=== PATIENT | male | born 1985 | race African-American/Black ===

== ENCOUNTER 2019-06-14 15:30 | Emergency (ER) | payer OTHER ==
[~2019-06-14] VITALS: Ht 180.3 cm; Wt 73.0 kg
[2019-06-14 15:52] VITALS: BP 137/84
--- NOTE | 2019-06-14 18:40 | NUR ---
Law enforcement given discharge instructions and they have confirmed that they understand the instructions. Patient ambulatory with steady gait.
== END 2019-06-14 18:41 | disposition home or self-care (01) ==
LOC: ED 15:39
DX: S02.32XA Fracture of orbital floor, left side, initial encounter for closed fracture (principal); S02.832A Fracture of medial orbital wall, left side, initial encounter for closed fracture; S02.642A Fracture of ramus of left mandible, initial encounter for closed fracture; X58.XXXA Exposure to other specified factors, initial encounter; Y93.89 Activity, other specified; Y92.148 Other place in prison as the place of occurrence of the external cause; Y99.8 Other external cause status
CPT/HCPCS: 70486; 99284

== ENCOUNTER 2019-06-21 12:42 | Inpatient (IN) | payer OTHER ==
[~2019-06-21] VITALS: Ht 180.3 cm; Wt 83.8 kg
--- NOTE | 2019-06-21 15:10 | NUR ---
provider reminded to place admit orders
[2019-06-21] MEDS ORDERED: IBUPROFEN 800 MG TABLET ONE (15:25)
[2019-06-21] MEDS ORDERED: IBUPROFEN 800 MG TABLET PO ONE (15:30)
--- NOTE | 2019-06-21 15:57 | NUR ---
Meal tray provided for patient.
--- NOTE | 2019-06-21 16:16 | NUR ---
ATTEMPTED TO CALL REPORT X 1
--- NOTE | 2019-06-21 16:25 | NUR ---
TO CT SCAN
[2019-06-21 17:00] VITALS: BP 122/74
[2019-06-21 18:56] VITALS: BP 131/75
[2019-06-21] MEDS ORDERED: OXYcodone IR 5MG TABLET PO PRN (19:30)
[2019-06-21] MEDS ORDERED: MORPHINE SULFATE 4 MG/ML, 1ML IVPush PRN (19:30)
[2019-06-21] MEDS ORDERED: ONDANSETRON 2MG/ML, 2ML IVPush PRN (19:30)
[2019-06-21] MEDS ORDERED: BISACODYL 10 MG SUPP PR PRN (19:30)
[2019-06-21] MEDS ORDERED: PROMETHAZINE 25 MG/ML, 1ML IM PRN (19:30)
[2019-06-21] MEDS ORDERED: POLYETHYLENE GLYCOL 17 GM PACKET PO PRN (19:30)
[2019-06-21] MEDS ORDERED: ACETAMINOPHEN 325 MG TABLET PO PRN (19:30)
[2019-06-21] MEDS ORDERED: DOCUSATE 100 MG CAPSULE PO PRN (19:30)
[2019-06-21] MEDS: SODIUM CHLORIDE 0.9% 1,000 ML IV SCH (19:40)
[2019-06-22 01:10] VITALS: BP 105/70
[2019-06-22 02:17] VITALS: BP 138/80
[2019-06-22 05:57] LABS: BASOPHILS # (AUTO) 0.02 x10^3/uL (0-0.1); BASOPHILS % (AUTO) 1 % (0-1); EOSINOPHILS # (AUTO) 0.08 x10^3/uL (0-0.4); EOSINOPHILS % (AUTO) 2 % (1-7); INTERNATIONAL NORMALIZED RATIO 1.05 (0.93-1.1); LYMPHOCYTES # (AUTO) 1.17 x10^3/uL (1-3.4); LYMPHOCYTES % (AUTO) 30 % (22-44); MD NO; MEAN CORPUSCULAR HGB CONC 32.8 g/dL (33.2-36.2); MEAN CORPUSCULAR VOLUME 100.6 fL (81-97); MEAN PLATELET VOLUME 7.9 fL (7.4-10.4); MONOCYTES # (AUTO) 0.33 x10^3/uL (0.2-0.8); MONOCYTES % (AUTO) 8 % (2-9); NEUTROPHILS # (AUTO) 2.35 x10^3/uL (1.8-6.8); NEUTROPHILS % (AUTO) 59 % (42-75); PLATELET COUNT 199 x10^3/uL (130-400); PROTHROMBIN TIME 11.1 Seconds (9.6-11.5); RED BLOOD COUNT 4.08 x10^6/uL (4.38-5.82); RED CELL DISTRIBUTION WIDTH 13.3 % (9.4-14.8)
[2019-06-22 06:02] LABS: ALBUMIN 3.3 g/dL (3.4-5.0); ANION GAP 3 mmol/L (5-15); CALCIUM 8.5 mg/dL (8.5-10.1); CHLORIDE 107 mmol/L (98-107)
[2019-06-22 06:05] LABS: ALANINE AMINOTRANSFERASE 8 U/L (12-78); ALKALINE PHOSPHATASE 45 U/L (45-117); BILIRUBIN,TOTAL 1.2 mg/dL (0.2-1.0); CREATININE 1.22 mg/dL (0.7-1.3); TOTAL PROTEIN 6.5 g/dL (6.4-8.2)
[2019-06-22 06:28] VITALS: BP 150/84
[2019-06-22] MEDS: SODIUM CHLORIDE 0.9% 1,000 ML IV SCH ×2 (11:34→21:50)
[2019-06-22] MEDS ORDERED: MIDAZOLAM 1 MG/ML, 2ML ONE (13:39)
[2019-06-22] MEDS ORDERED: FENTANYL PF 250 MCG/5ML ONE (13:39)
[2019-06-22] MEDS ORDERED: PROPOFOL 10 MG/ML, 20ML ONE (13:44)
[2019-06-22] MEDS ORDERED: ONDANSETRON 2MG/ML, 2ML ONE (13:44)
[2019-06-22] MEDS ORDERED: SUCCINYLCHOLINE 20 MG/ML, 10ML ONE (13:44)
[2019-06-22] MEDS ORDERED: CEFAZOLIN 1,000 MG ONE (13:44)
[2019-06-22] MEDS ORDERED: DEXAMETHASONE 4 MG/ML, 1ML ONE (13:44)
[2019-06-22] MEDS ORDERED: LIDOCAINE 1%-EPI 1:100K, 20ML ONE (13:49)
[2019-06-22] MEDS ORDERED: MUPIROCIN OINT 2%, 22GM ONE (13:49)
[2019-06-22] MEDS ORDERED: BALANCED SALT OPHTH IRRIG SOLN 18ML ONE (13:49)
[2019-06-22 13:53] VITALS: BP 131/82
[2019-06-22] MEDS ORDERED: PROMETHAZINE 25 MG/ML, 1ML IV PRN (14:00)
[2019-06-22] MEDS ORDERED: hydrALAzine 20 MG/ML, 1ML IV PRN (14:00)
[2019-06-22] MEDS ORDERED: ACETAMINOPHEN 325 MG TABLET PO PRN (14:00)
[2019-06-22] MEDS ORDERED: HYDROmorphone 2 MG/ML, 1ML IVPush PRN (14:00)
[2019-06-22] MEDS ORDERED: FENTANYL PF 100 MCG/2ML IV PRN (14:00)
[2019-06-22] MEDS ORDERED: LABETALOL 5MG/ML, 20ML IV PRN (14:00)
[2019-06-22] MEDS ORDERED: OXYcodone 5 MG/5 ML ORAL.SOL UDC PO PRN (14:00)
[2019-06-22] MEDS ORDERED: MEPERIDINE/PF 25MG/ML,1ML IVPush PRN (14:00)
[2019-06-22] MEDS ORDERED: EPHEDRINE 50 MG/ML, 1ML IVPush PRN (14:00)
[2019-06-22] MEDS ORDERED: ONDANSETRON 2MG/ML, 2ML IV PRN (14:00)
[2019-06-22] MEDS ORDERED: GABAPENTIN 300 MG CAPSULE ONE (14:19)
[2019-06-22] MEDS ORDERED: ACETAMINOPHEN 500 MG TABLET ONE (14:19)
[2019-06-22] MEDS ORDERED: ACETAMINOPHEN 500 MG TABLET PO ONE (14:30)
[2019-06-22] MEDS ORDERED: GABAPENTIN 300 MG CAPSULE PO ONE (14:30)
[2019-06-22] MEDS ORDERED: KETOROLAC 30 MG/1 ML ONE (14:43)
[2019-06-22] MEDS ORDERED: LIDOCAINE-MPF 2% ,5ML ONE (14:43)
[2019-06-22 19:34] VITALS: BP 124/76
[2019-06-22] MEDS: TOBRAMYCIN OPHTH 0.3% 5ML OP SCH (21:50)
[2019-06-22] MEDS: CEFAZOLIN PMX 1GM/50ML 50 ML IV SCH (21:50)
[2019-06-23] VITALS: BP 128/78
[2019-06-23 04:02] VITALS: BP 117/75
[2019-06-23] MEDS: TOBRAMYCIN OPHTH 0.3% 5ML OP SCH ×3 (05:52→16:00)
[2019-06-23] MEDS: CEFAZOLIN PMX 1GM/50ML 50 ML IV SCH ×2 (05:52→14:42)
[2019-06-23 07:55] VITALS: BP 116/74
[2019-06-23] MEDS: SODIUM CHLORIDE 0.9% 1,000 ML IV SCH (11:09)
[2019-06-23 13:15] VITALS: BP 113/63
[2019-06-23] MEDS ORDERED: AMOX1TAB64 PO (13:21)
[2019-06-23] MEDS ORDERED: TOBR5DRO14 LEFTEYE (13:22)
== END 2019-06-23 16:00 | disposition home or self-care (01) | DRG 113 ==
LOC: ED 13:11 → EDIP 15:23 → 4NE 16:47
PROVIDERS: ADMIT Internal Medicine; ATTEND Internal Medicine
PROC: 0NUQ0JZ Supplement Left Orbit with Synthetic Substitute, Open Approach (ICD-10-PCS; 2019-06-22)
PROC: 0NSQ04Z Reposition Left Orbit with Internal Fixation Device, Open Approach (ICD-10-PCS; principal; 2019-06-22 14:30)
DX: S02.32XA Fracture of orbital floor, left side, initial encounter for closed fracture (principal); S02.642A Fracture of ramus of left mandible, initial encounter for closed fracture; K02.9 Dental caries, unspecified; K04.7 Periapical abscess without sinus; Z91.018 Allergy to other foods; D75.89 Other specified diseases of blood and blood-forming organs; X58.XXXA Exposure to other specified factors, initial encounter; Y93.89 Activity, other specified; Y92.89 Other specified places as the place of occurrence of the external cause; Y99.8 Other external cause status
CPT/HCPCS: 36415; 99285; J3490; 70486; 80053; 82607; 85025; 85610; 85730; C1713; G0378; J0690; J1100; J1885; J2250; J2405; J2704; J3010; C1781; J0330; J7030